=== PATIENT | female | born 2000 | race Hispanic/Latino ===

== ENCOUNTER 2024-09-02 14:13 | Emergency (ER) | payer SELFPAY ==
[~2024-09-02] VITALS: Ht 162.6 cm; Wt 68.0 kg
[~2024-09-02 14:13] MED LIST: ADVAIR DISK1 IN; AMOXICILLI250 MG/5 M OR; AZITHROMYC200 MG/5 M OR; HYDROXYZ H10 MG/5 ML OR; NOREL DM OR; OMEPRAZOLE20 M2 PO; SINGULAIR5 MG OR
[2024-09-02 14:36] VITALS: BP 133/79
[2024-09-02] MEDS ORDERED: Diph, Acellular Pertussis, Tet 0.5 ML/VIAL (Tdap) SDV IM ONE (15:05)
[2024-09-02] MEDS ORDERED: AMOX/K CLAV875 M1 PO ×2 (15:17→15:56)
== END 2024-09-02 16:04 | disposition home or self-care (01) | DRG 603 ==
LOC: ED 14:13
PROC: 0H9FXZZ Drainage of Right Hand Skin, External Approach (ICD-10-PCS; principal; 2024-09-02)
DX: L03.011 Cellulitis of right finger (principal); S61.051A Open bite of right thumb without damage to nail, initial encounter; W54.0XXA Bitten by dog, initial encounter; Y92.009 Unspecified place in unspecified non-institutional (private) residence as the place of occurrence of the external cause
CPT/HCPCS: 90715